=== PATIENT | male | born 1980 | race Caucasian/White ===

== ENCOUNTER 2024-12-02 13:19 | Emergency (ER) | payer SELFPAY ==
[2024-12-02 13:41] VITALS: BP 163/96; PULSE 77; RESP 16; TEMP 36.4; O2SAT 99
--- NOTE | 2024-12-02 14:39 | ED_ITS ---
HPI - Extremity Problem General: Chief complaint: Extremity Injury, Upper Stated complaint: R hand swelling Time Seen by Provider: 12/02/24 13:52 History of Present Illness: 44-year-old male patient presents to the emergency department with left sided thumb infection underneath the nailbed. Patient states he was started on Keflex 2 days ago but has had no no improvement. Patient presents concerned that his infection is not getting any better. Patient denies any fever. Patient denies any trauma or injury. Patient has had previous surgery years ago on this hand. Related Data Previous Rx's ?Medication ?Instructions ?Recorded clindamycin HCl 300 mg capsule 300 mg PO BID 7 days #1 4 caps 12/02/24 (Cleocin HCl) Allergies Allergy/AdvReac Type Severity Reaction Status Date / Time No Known Allergies Allergy Verified 12/02/24 13:44 Review of Systems General: Reports: 10 or more systems reviewed and unremarkable except in HPI and below Physical Exam Const: COMMON NORMALS: no acute distress, average body habitus, patient oriented x3, no limitations, healthy appearing, alert and well nourished Resp: COMMON NORMALS: normal respiratory effort and No retractions Cardio: COMMON NORMALS: regular rate and regular rhythm RATE: regular rate RHYTHM: regular rhythm Extremity: LEFT UPPER EXTREMITY: Yes hand & digits (Purulent drainage noted under the nailbed of the left thumb there is no nancy) Neuro: COMMON NORMALS: patient oriented x3 SENSORIUM/ORIENTATION: Yes alert Course Vital Signs: Vital signs: Vital Signs Temperature 97.6 F 12/02/24 13:41 Pulse Rate 77 12/02/24 13:41 Respiratory Rate 16 12/02/24 13:41 Blood Pressure 163/96 12/02/24 13:41 Pulse Oximetry 99 12/02/24 13:41 Oxygen Delivery Me thod Room Air 12/02/24 13:41 MDM - Extremity (Nontraumatic) Medical Decision Making Patient is well-appearing nontoxic in no acute distress 44-year-old male patient presents to the emergency department with left sided thumb infection underneath the nailbed. Patient states he was started on Keflex 2 days ago but has had no no improvement. Patient presents concerned that his infection is not getting any better. Patient denies any fever. Patient denies any trauma or injury. Patient has had previous surgery years ago on this hand. X-ray obtained that does not reveal any evidence of osteomyelitis. There is some purulent drainage noted under the left nailbed there is no appearance of ingrown nail. Given patient's presenting concerns I will start him on clindamycin at this time patient does have history of MRSA. Patient does not have a sausage digit noted patient does not have any tendon sheath pain. Patient is neurovascularly intact distally. I discussed with patient completing his antibiotics as well as following up with primary care for recheck as well as return precautions to the emergency department. Lab Data Radiology Impressions Finger X-Ray 12/02/24 14:40 IMPRESSION: Soft tissue swelling of the thumb with no evidence of osteomyelitis All radiology interpretation(s) finalized by discharge Discharge Plan Discharge Patient Disposition: Home Clinical Impression: Infection of nail bed of finger Qualifiers: Laterality: right Qualified Code(s): L03.011 - Cellulitis of right finger Condition: Stable Prescriptions: New clindamycin HCl [Cleocin HCl] 300 mg capsule 300 mg PO BID 7 Days Qty: 14 0RF Discharge Orders: Discharge ED (Routine); Ordered 12/02/24 Ordered By: Aspen Van Referrals: Nina Smalls FNP [Primary Care Provider, Family Practice] Discharge Diet: Advance as tolerated Discharge Activity: Increase activity as tolerated Patient Instructions: Opioid Safety, Pain Management, Patient Portal & [facility] Instructions Activity Restrictions/Additional Instructions: Please take meds as prescribed Skin care as discussed Return to ER with any worsening of symptoms or concerns Print Language: [place] Coding Level of Care Code ED Operator Weapon Locating Radar for Rich Ahmadi
--- NOTE | 2024-12-02 14:40 | XRR_ITS ---
PROCEDURE INFORMATION: Exam: XR Right Finger(s) Exam date and time: 12/02/2024 2:47 PM Age: 44 years old Clinical indication: Pain; Finger(s); Right; Additional info: Infection thumb TECHNIQUE: Imaging protocol: Radiologic exam of the right fingers. Views: Minimum 2 views. COMPARISON: No relevant prior studies available. FINDINGS: Bones/joints: Multiple old fractures involve the distal wrist joints 2nd through 4th metacarpals with multiple points of bony fusion throughout the area. Surgical clips and sutures are noted throughout this area. No acute fracture or bony erosion noted. Soft tissues: Soft tissue swelling involves the distal aspect of the thumb. I see no soft tissue air. XR/XR finger RT min 2V [id number] IMPRESSION: Soft tissue swelling of the thumb with no evidence of osteomyelitis
== END 2024-12-02 16:17 | disposition home or self-care (01) ==
PROVIDERS: Emergency Provider Registered Nurse; PCP Nurse Practitioner
DX: L03.011 Cellulitis of right finger (principal)
CPT/HCPCS: 73140; 99283